=== PATIENT | female | born 1970 | race Native Hawaiian/Other Pacific Islander ===

== ENCOUNTER 2017-07-02 10:43 | Emergency (ER) | payer OTHER ==
[~2017-07-02] VITALS: Ht 172.7 cm; Wt 103.0 kg
== END 2017-07-02 12:21 | disposition home or self-care (01) ==
LOC: ED 10:43
DX: R07.89 Other chest pain (principal); S29.011A Strain of muscle and tendon of front wall of thorax, initial encounter; X58.XXXA Exposure to other specified factors, initial encounter; Y93.89 Activity, other specified; Y92.89 Other specified places as the place of occurrence of the external cause
CPT/HCPCS: 96372; 99283; J1885

== ENCOUNTER → 2019-01-03 | Outpatient (CLI) | payer OTHER | LOC: RAD 09:42 | DX: J44.9 Chronic obstructive pulmonary disease, unspecified (principal) ==

== ENCOUNTER 2019-04-28 14:56 | Outpatient (CLI) | payer OTHER | END 2019-04-28 23:58 | disposition home or self-care (01) | LOC: RAD 14:56 | DX: M54.5 Low back pain (principal); M54.2 Cervicalgia ==

== ENCOUNTER 2020-06-12 09:35 | Outpatient (CLI) | payer OTHER ==
[2020-06-12 09:56] LABS: PLATELET COUNT 264 K/uL (152-353)
[2020-06-12 10:15] LABS: POTASSIUM 4.3 mmol/L (3.6-5.2)
== END 2020-06-12 20:26 | disposition home or self-care (01) ==
LOC: LABW 09:35
PROVIDERS: Family Medicine
DX: G89.4 Chronic pain syndrome (principal); F41.9 Anxiety disorder, unspecified; R14.0 Abdominal distension (gaseous); J44.9 Chronic obstructive pulmonary disease, unspecified; M50.30 Other cervical disc degeneration, unspecified cervical region; F17.200 Nicotine dependence, unspecified, uncomplicated; Z78.0 Asymptomatic menopausal state; Z68.38 Body mass index [BMI] 38.0-38.9, adult; M19.90 Unspecified osteoarthritis, unspecified site; G25.81 Restless legs syndrome; E55.9 Vitamin D deficiency, unspecified
CPT/HCPCS: 36415; 80053; 80061; 81000; 82306; 84439; 84443; 85027